=== PATIENT | male | born 1990 | race Caucasian/White ===

== ENCOUNTER 2017-11-27 10:41 | Emergency (ER) | payer OTHER ==
[2017-11-27 10:55] VITALS: BP 132/77; PULSE 79; TEMP 98; BMI 55.7
[2017-11-27] MEDS ORDERED: KETOROLAC TROMETHAMINE 60 MG/2 ML VIAL IM ONE (11:34)
[2017-11-27] MEDS ORDERED: KETOROLAC TROMETHAMINE 60 MG/2 ML VIAL ONE (11:35)
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
== END 2017-11-27 12:19 | disposition home or self-care (01) ==
LOC: JERFT 10:41
PROC: 3E0233Z Introduction of Anti-inflammatory into Muscle, Percutaneous Approach (ICD-10-PCS; principal; 2017-11-27)
DX: S39.012A Strain of muscle, fascia and tendon of lower back, initial encounter (principal); S86.812A Strain of other muscle(s) and tendon(s) at lower leg level, left leg, initial encounter; V47.5XXA Car driver injured in collision with fixed or stationary object in traffic accident, initial encounter; Y92.488 Other paved roadways as the place of occurrence of the external cause; Y93.89 Activity, other specified; Y99.8 Other external cause status
CPT/HCPCS: 73560-TC-LT; 73590-TC-LT; 99281-25